=== PATIENT | female | born 1990 | race Caucasian/White ===

== ENCOUNTER 2016-11-18 18:35 | Emergency (ER) | payer SELFPAY ==
[~2016-11-18] VITALS: Ht 157.4 cm; Wt 53.1 kg
[~2016-11-18 18:35] MED LIST: AMOXICILLIN500 MG PO; BACTRIM DS 8001 TA1 PO; BIRTH CONTROL1 EAC1; DIFLUCAN150 MG PO; MOTRIN800 MG PO; NAPROSYN500 MG PO; NKHM; NORCO 325 MG-51 TAB PO; PARAFON FORTE500 MG PO; PYRIDIUM200 MG PO; VICODIN ES 7501 TAB PO; ZITHROMAX250 MG PO
[2016-11-18] MEDS ORDERED: ZANTAC 150150 MG PO (18:52)
[2016-11-18] MEDS ORDERED: AMOXICILLIN500 M2 PO (18:52)
[2016-11-18] MEDS ORDERED: NAPROSYN500 MG PO (18:52)
[2016-11-18 19:37] LABS: BASO % 0.2 % (0.0-1.0); EOS # 0.2 10*3/uL (0.0-0.4); HEMATOCRIT 37.7 % (37.0-47.0); HEMOGLOBIN 12.8 g/dl (12.0-16.0); LYMPH # 1.9 10*3/uL (1.3-4.4); LYMPH % 19.6 % (27.0-41.0); MEAN CORPUSCULAR HGB 28.2 pg (27.0-31.0); MEAN PLATELET VOLUME 10.8 fl (9.6-12.3); MONO # 1.2 10*3/uL (0.1-1.0); NEUT # 6.5 10*3/uL (2.3-7.9); NUCLEATED RED BLOOD CELL 0.2 % (0.0-0.0); PLATELET COUNT AUTOMATED 262 10*3/uL (130-400); RED BLOOD COUNT 4.54 10*6/uL (4.10-5.10); RED CELL DISTRI WIDTH 15.3 % (0-14.5); WHITE BLOOD COUNT 9.8 10*3/uL (4.8-10.8)
[2016-11-18 19:53] LABS: ALBUMIN 3.7 gm/dl (3.1-4.5); ALKALINE PHOSPHATASE 54 U/L (45-117); BILIRUBIN, TOTAL 0.7 mg/dl (0.2-1.0); BUN 12 mg/dl (7-24); CARBON DIOXIDE 27 mmol/L (21-32); CHLORIDE 105 mmol/L (98-107); EST GLOM FILT AFRICAN AMERICAN > 60 ml/min; GLUCOSE 72 mg/dL (65-99); POTASSIUM 4.4 mmol/L (3.5-5.1); SGOT/AST 18 IU/L (3-35); SGPT/ALT 36 U/L (12-78); SODIUM 141 mmol/L (136-145); TOTAL PROTEIN 7.5 gm/dL (6.4-8.2)
== END 2016-11-18 20:09 | disposition home or self-care (01) ==
LOC: ED 18:35
PROVIDERS: Nurse Practitioner Family
DX: K08.89 Other specified disorders of teeth and supporting structures (principal); K21.9 Gastro-esophageal reflux disease without esophagitis; F17.200 Nicotine dependence, unspecified, uncomplicated; Z98.890 Other specified postprocedural states

== ENCOUNTER 2017-10-13 17:51 | Emergency (ER) | payer SELFPAY ==
[~2017-10-13] VITALS: Wt 54.4 kg
[~2017-10-13 17:51] MED LIST changes: +AMOXICILLIN500 M2 PO; +ZANTAC 150150 MG PO
[2017-10-13 18:16] LABS: BASO % 0.3 % (0.0-1.0); EOS % 0.3 % (1.0-4.0); HEMATOCRIT 37.9 % (37.0-47.0); LYMPH # 1.8 10*3/uL (1.3-4.4); LYMPH % 17.6 % (27.0-41.0); MEAN CELL VOLUME 83.8 fl (81.0-99.0); MEAN CORPUSCULAR HGB 28.8 pg (27.0-31.0); MEAN CORPUSCULAR HGB CONC 34.3 g/dl (33.0-37.0); MONO % 10.3 % (3.0-9.0); NEUT # 7.2 10*3/uL (2.3-7.9); NEUT % 71.3 % (47.0-73.0); PLATELET COUNT AUTOMATED 253 10*3/uL (130-400); RED BLOOD COUNT 4.52 10*6/uL (4.10-5.10); RED CELL DISTRI WIDTH 14.1 % (0-14.5)
[2017-10-13 18:26] LABS: BILIRUBIN NEGATIVE (NEGATIVE); BLOOD 3+ (NEGATIVE); CLARITY SL CLOUDY (CLEAR); COLOR YELLOW (YELLOW); GLUCOSE NEGATIVE (NEGATIVE); KETONE NEGATIVE (NEGATIVE); LEUKO ESTERASE 3+ (NEGATIVE); NITRITE POSITIVE (NEGATIVE)
[2017-10-13 18:31] LABS: ALBUMIN 3.8 gm/dl (3.1-4.5); ALKALINE PHOSPHATASE 75 U/L (45-117); BUN 6 mg/dl (7-24); CHLORIDE 102 mmol/L (98-107); POTASSIUM 3.1 mmol/L (3.5-5.1); SGOT/AST 18 IU/L (3-35); SGPT/ALT 22 U/L (12-78); SODIUM 138 mmol/L (136-145); TOTAL PROTEIN 7.7 gm/dL (6.4-8.2)
[2017-10-13 18:35] LABS: BACTERIA 3+
[2017-10-13 18:36] LABS: MUCOUS 1+; RBC 51-100 rbc/hpf (0-2); WBC 51-100 wbc/hpf (0-5)
[2017-10-13] MEDS ORDERED: Bactrim DS PO (18:40)
[2017-10-13] MEDS ORDERED: PYRIDIUM200 M1 PO (18:40)
== END 2017-10-13 19:39 | disposition home or self-care (01) ==
LOC: ED 17:51
PROVIDERS: Nurse Practitioner Family
DX: E87.6 Hypokalemia (principal); N39.0 Urinary tract infection, site not specified; F17.200 Nicotine dependence, unspecified, uncomplicated; K21.9 Gastro-esophageal reflux disease without esophagitis; Z98.890 Other specified postprocedural states

== ENCOUNTER 2017-12-20 11:54 | Emergency (ER) | payer SELFPAY ==
[~2017-12-20] VITALS: Ht 152.4 cm; Wt 54.4 kg
[~2017-12-20 11:54] MED LIST changes: +Bactrim DS PO; +PYRIDIUM200 M1 PO
[2017-12-20 12:37] LABS: BILIRUBIN NEGATIVE (NEGATIVE); BLOOD NEGATIVE (NEGATIVE); CLARITY SL CLOUDY (CLEAR); COLOR YELLOW (YELLOW); GLUCOSE NEGATIVE (NEGATIVE); KETONE NEGATIVE (NEGATIVE); LEUKO ESTERASE NEGATIVE (NEGATIVE); NITRITE NEGATIVE (NEGATIVE); SPECIFIC GRAVITY 1.025 (1.005-1.030); UROBILINOGEN 0.2 E.U./dl (0.2-1.0)
[2017-12-20 13:08] LABS: BACTERIA 1+; MUCOUS 1+
== END 2017-12-20 15:03 | disposition home or self-care (01) ==
LOC: ED 11:54
PROVIDERS: Nurse Practitioner Family
DX: Z11.3 Encounter for screening for infections with a predominantly sexual mode of transmission (principal); Z32.02 Encounter for pregnancy test, result negative; F17.200 Nicotine dependence, unspecified, uncomplicated; Z79.899 Other long term (current) drug therapy

== ENCOUNTER 2018-12-28 14:19 | Emergency (ER) | payer SELFPAY ==
[~2018-12-28] VITALS: Ht 162.5 cm; Wt 53.1 kg
[~2018-12-28 14:19] MED LIST changes: +CLINDAMYCIN HC300 MG PO; +Motrin,Rufen800 MG PO
[2018-12-28] MEDS ORDERED: PENICILLIN VK500 MG PO (14:36)
[2018-12-28] MEDS ORDERED: ZOFRAN4 MG PO (14:36)
[2018-12-28] MEDS ORDERED: Peridex 473 ML473 ML PO (14:36)
== END 2018-12-28 14:45 | disposition home or self-care (01) ==
LOC: ED 14:19
DX: K04.7 Periapical abscess without sinus (principal); R11.2 Nausea with vomiting, unspecified; K21.9 Gastro-esophageal reflux disease without esophagitis

== ENCOUNTER 2022-12-17 09:14 | Emergency (ER) | payer SELFPAY ==
[~2022-12-17] VITALS: Ht 162.5 cm; Wt 53.1 kg
[~2022-12-17 09:14] MED LIST changes: +PENICILLIN VK500 MG PO; +Peridex 473 ML473 ML PO; +ZOFRAN4 MG PO
[2022-12-17 10:18] LABS: BILIRUBIN Negative (Negative); BLOOD Negative (Negative); CLARITY Clear (Clear); COLOR Yellow (Yellow); GLUCOSE Trace (Negative); KETONE Negative (Negative); LEUKO ESTERASE Negative (Negative); NITRITE Negative (Negative); PH 5.5 (4.5-8.0); UROBILINOGEN 0.2 E.U./dl (0.0-1.0)
[2022-12-17 10:28] LABS: BACTERIA 3+; MUCOUS TRACE
[2022-12-17] MEDS ORDERED: OMNICEF300 MG PO (10:47)
[2022-12-17] MEDS ORDERED: ONDANSETRON HYDR4 M1 PO (10:47)
== END 2022-12-17 11:05 | disposition home or self-care (01) ==
LOC: ED 09:14
PROVIDERS: Student in an Organized Health Care Education/Training Program
DX: N39.0 Urinary tract infection, site not specified (principal); B34.9 Viral infection, unspecified; Z98.890 Other specified postprocedural states; Z20.822 Contact with and (suspected) exposure to COVID-19

== ENCOUNTER 2023-09-29 15:36 | Emergency (ER) | payer SELFPAY ==
[~2023-09-29] VITALS: Ht 162.5 cm; Wt 49.9 kg
[~2023-09-29 15:36] MED LIST changes: +OMNICEF300 MG PO; +ONDANSETRON HYDR4 M1 PO
[2023-09-29 17:36] LABS: BILIRUBIN Negative (Negative); BLOOD Negative (Negative); CLARITY Clear (Clear); COLOR Yellow (Yellow); GLUCOSE Negative (Negative); KETONE Negative (Negative); LEUKO ESTERASE Trace (Negative); NITRITE Negative (Negative); SPECIFIC GRAVITY 1.015 (1.001-1.030)
[2023-09-29 17:46] LABS: BACTERIA TRACE
[2023-09-29] MEDS ORDERED: KEFLEX 500 MG E2 CAP PO (18:00)
[2023-09-29] MEDS ORDERED: ONDANSETRON4 MG SL (18:00)
== END 2023-09-29 18:08 | disposition home or self-care (01) ==
LOC: ED 15:36
PROVIDERS: Emergency Medicine
DX: N39.0 Urinary tract infection, site not specified (principal); R11.0 Nausea; N64.4 Mastodynia; R19.7 Diarrhea, unspecified; K21.9 Gastro-esophageal reflux disease without esophagitis; Z98.890 Other specified postprocedural states

== ENCOUNTER 2023-12-17 03:24 | Emergency (ER) | payer SELFPAY ==
[~2023-12-17] VITALS: Wt 53.1 kg
[~2023-12-17 03:24] MED LIST changes: +KEFLEX 500 MG E2 CAP PO; +ONDANSETRON4 MG SL
[2023-12-17 03:57] LABS: BILIRUBIN Negative (Negative); BLOOD Negative (Negative); CLARITY Clear (Clear); COLOR Yellow (Yellow); GLUCOSE Negative (Negative); KETONE 1+ (Negative); LEUKO ESTERASE 1+ (Negative); NITRITE Negative (Negative); PH 5.5 (4.5-8.0); SPECIFIC GRAVITY 1.015 (1.001-1.030)
[2023-12-17 04:04] LABS: URINE AMPHETAMINES Positive (1000ng/ml); URINE BARBITURATES Negative (200ng/ml); URINE BENZODIAZEPINES Negative (200ng/ml); URINE CANNABINOIDS (THC) Negative (50ng/ml); URINE COCAINE Negative (300ng/ml); URINE METHADONE Negative (300ng/ml); URINE OPIATES Negative (300ng/ml); URINE PHENCYCLIDINE Negative (25ng/ml)
[2023-12-17 04:29] LABS: BACTERIA 2+
[2023-12-17] MEDS ORDERED: CIPRO500 MG PO (04:49)
== END 2023-12-17 05:20 | disposition home or self-care (01) ==
LOC: ED 03:24
PROVIDERS: Internal Medicine
DX: N39.0 Urinary tract infection, site not specified (principal); R11.2 Nausea with vomiting, unspecified; Z98.890 Other specified postprocedural states; Z79.899 Other long term (current) drug therapy

== ENCOUNTER 2024-12-23 14:16 | Emergency (ER) | payer SELFPAY ==
[~2024-12-23 14:16] MED LIST changes: +CIPRO500 MG PO
[2024-12-23] MEDS ORDERED: AVPAK AZITHROM250 M1 PO (14:33)
== END 2024-12-23 14:37 | disposition home or self-care (01) ==
LOC: ED 14:16
DX: J32.9 Chronic sinusitis, unspecified (principal); F17.210 Nicotine dependence, cigarettes, uncomplicated; Z98.890 Other specified postprocedural states